=== PATIENT | female | born 1960 | race Caucasian/White ===

== ENCOUNTER 2017-10-19 19:41 | Emergency (ER) | payer BC ==
[~2017-10-19] VITALS: Ht 162.6 cm; Wt 70.4 kg
[~2017-10-19 19:41] MED LIST: FISH OIL WITH1 EACH PO; HYDROCHLOROTH12.5 M3 PO; PERCOCET 5/31 TABLET PO
[2017-10-19] MEDS ORDERED: PERCOCET 5/31 TABLET PO (22:21)
[2017-10-19 23:18] VITALS: BP 172/79
== END 2017-10-19 23:20 | disposition home or self-care (01) ==
LOC: EME 19:41
PROC: 0QSQXZZ Reposition Right Toe Phalanx, External Approach (ICD-10-PCS; principal; 2017-10-19)
DX: S92.511A Displaced fracture of proximal phalanx of right lesser toe(s), initial encounter for closed fracture (principal); W22.03XA Walked into furniture, initial encounter; I10 Essential (primary) hypertension; E78.5 Hyperlipidemia, unspecified; Z87.891 Personal history of nicotine dependence
CPT/HCPCS: 73660; 99281; 99284